=== PATIENT | female | born 1985 | race Caucasian/White ===

== ENCOUNTER 2016-06-24 19:35 | Emergency (ER) | payer OTHER ==
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
--- NOTE | 2016-06-24 22:12 | ED MAR SUMMARY ---
..... Medication Administration Record [facility] [address] [place], [place] [id number] Patient: MARTY YOUNG Visit ID: [id number] 31y, F Weight: 123.8 kg Height/Length: 64 in BMI: 46.9 ALLERGIES: No Known Drug Allergy
--- NOTE | 2016-06-24 22:12 | ED MED RECONCILIATION SUMMARY ---
Patient: MARTY YOUNG Medication Reconciliation Report [facility] VisitID: [id number] [address] [place] [address] 31y, F Registration Date/Time: 06/24/2016 Weight: 123.8 kg Height/Length: 64 in. BMI: 46.9 ALLERGIES: No Known Drug Allergy The patient's Home Medications are listed below: THE FOLLOWING MEDICATIONS NEED TO BE RECONCILED: HydrOXYzine HCl Oral 25 mg, 4x a day Lasix 20mg, daily Metoprolol Tartrate Oral 25 mg, daily ProAir HFA Inhalation 2 puffs, 4x a day PROzac Oral 60 mg, daily The source(s) of the original Home Medication information: patient The following Medications were given to the patient in the Emergency Department: None. The following Medications were prescribed to the patient: Zithromax 250 mg tablets: take 2 orally today, followed by 1 daily for the next 4 days. No refills. Substitution is permissible. -- Delmy Evans A.R.N.P.
--- NOTE | 2016-06-24 22:12 | ED MAR SUMMARY ---
..... Medication Administration Record [facility] [address] [place], [place] [id number] Patient: MARTY YOUNG Visit ID: [id number] 31y, F Weight: 123.8 kg Height/Length: 64 in BMI: 46.9 ALLERGIES: No Known Drug Allergy
--- NOTE | 2016-06-24 22:12 | ED MED RECONCILIATION SUMMARY ---
Patient: MARTY YOUNG Medication Reconciliation Report Located [facility] VisitID: [id number] [address] [place] [address] 31y, F Registration Date/Time: 06/24/2016 Weight: 123.8 kg Height/Length: 64 in. BMI: 46.9 ALLERGIES: No Known Drug Allergy The patient's Home Medications are listed below: THE FOLLOWING MEDICATIONS NEED TO BE RECONCILED: HydrOXYzine HCl Oral 25 mg, 4x a day Lasix 20mg, daily Metoprolol Tartrate Oral 25 mg, daily ProAir HFA Inhalation 2 puffs, 4x a day PROzac Oral 60 mg, daily The source(s) of the original Home Medication information: patient The following Medications were given to the patient in the Emergency Department: None. The following Medications were prescribed to the patient: Zithromax 250 mg tablets: take 2 orally today, followed by 1 daily for the next 4 days. No refills. Substitution is permissible. -- Delmy Evans A.R.N.P.
--- NOTE | 2016-06-24 22:12 | ED DISCHARGE INSTRUCTIONS ---
Patient: MARTY YOUNG General Instructions [facility] VisitID: [id number] [place] [address] 31y, F Registration Date/Time: 06/24/2016 INSTRUCTIONS Alternate Tylenol (Acetaminophen) and Motrin (Ibuprofen) for fever, temperature greater than 101 degrees orally. Take according to label instructions. Do not work for two days. Drink plenty of fluids for the next 24 hours until better. Do not smoke. Warnings: GENERAL WARNINGS: Return or contact your physician immediately if your condition worsens or changes unexpectedly, if not improving as expected, or if other problems arise. Specifically return if problem worsens. Prescription Medications: Zithromax 250 mg tablets: take 2 orally today, followed by 1 daily for the next 4 days. No refills. Substitution is permissible. Follow-up: Follow up with your doctor in about five days even if well. Call for an appointment. Summary of care provided to patient. Screening today revealed the patient's blood pressure to be in the hypertensive range. The patient should follow up with a primary care provider for blood pressure management. Understanding of the discharge instructions verbalized by patient. ADDITIONAL INFORMATION Bronchitis (Adult: Abx Tx) BRONCHITIS is an infection of the air passages (bronchial tubes). It often occurs during the common cold. Symptoms include cough with mucus (phlegm) and low-grade fever. Bronchitis usually lasts 7-14 days. Mild cases can be treated with simple home remedies. More severe infection is treated with an antibiotic. Home Care: If symptoms are severe, rest at home for the first 2-3 days. When you resume activity, don't let yourself get too tired. Do not smoke. Avoid being exposed to the smoke of others. You may use acetaminophen (Tylenol) or ibuprofen (Motrin, Advil) to control fever or pain, unless another medicine was prescribed for this. [NOTE: If you have chronic liver or kidney disease or ever had a stomach ulcer or GI bleeding, talk with your doctor before using these medicines.] Your appetite may be poor, so a light diet is fine. Avoid dehydration by drinking 6-8 glasses of fluids per day (water, soft, drinks, juices, tea, soup, etc.). Extra fluids will help loosen secretions in the lungs. Fdzp-zyk-bwmgshu cough medicines that containdextromethorphan(such as Robitussin DM) and decongestants (Actifed or Sudafed) may help relieve cough and congestion. [NOTE: Do not use decongestants if you have high blood pressure.] Finish all antibiotic medicine, even if you are feeling better after only a few days. Follow Up with your doctor or as directed if you dont start to feel better after three days. [NOTE: If you are age 65 or older, or if you have chronic asthma or COPD, we recommend a PNEUMOCOCCAL VACCINATION every five years and a yearly INFLUENZAVACCINATION (FLU-SHOT) every . Ask your doctor about this. If you had an X-ray, a radiologist will review it. You will be notified of any new findings that may affect your care.] Get Prompt Medical Attention if any of the following occur: Fever over 100.4F (38.0C) for more than three days Trouble breathing, wheezing or pain with breathing Coughing up blood or increased amounts of colored sputum Weakness, drowsiness, headache, facial pain, ear pain or a stiff neck Fever Control (Adult) A fever is a natural reaction of the body to an illness. In most cases, the temperature itself is not harmful. It actually helps the body fight infections. A fever does not need to be treated unless you feel very uncomfortable. Home Care If you feel warm, check your temperature. If you feel very uncomfortable and your temperature is at or higher than 100.4F (38C) oral, you may take acetaminophen (Tylenol) every 4 to 6 hours. If you cant take or keep down oral medicine, ask your pharmacist for Tylenol suppositories, which you can get without a prescription. If the fever does not respond to acetaminophen within 1 hour, take ibuprofen (Advil or Motrin). If this works, keep taking the ibuprofen every 6 to 8 hours. Note: If you have chronic liver or kidney disease or ever had a stomach ulcer or GI bleeding, talk with your doctor before using these medications. If either medication alone does not keep the fever down, you may alternate the two medicines every 3 to 4 hours, only if your healthcare provider has instructed you to do so. For example, take Motrin then wait 3 hours, take Tylenol then wait 3 hours, take Motrin, and so on. Follow your healthcare providers instructions exactly. Clothing: Keep clothing light because excess body heat is lost through the skin. The fever will go up if you wear extra layers or wrap in blankets. Fluids: Fever causes the body to lose water through evaporation. Drink plenty of fluids such as water, juice, clear sodas, jenae jordy, or lemonade. Do not use aspirin in anyone under 18 years of age who is ill with a fever. It can cause severe liver damage. Follow Up with your doctor or as advised by our staff if you do not get better after 48 hours. Get Prompt Medical Attention if any of the following occur: Fever does not get better after taking fever medication Fast or difficult breathing Earache, sinus pain, stiff or painful neck, headache, repeated diarrhea or vomiting You feel unusually irritable, drowsy, or confused A rash appears You feel weak or dizzy, or that you might faint Azithromycin Oral tablet What is this medicine? AZITHROMYCIN (az ith aaliyah EBTYE sin) is a macrolide antibiotic. It is used to treat or prevent certain kinds of bacterial infections. It will not work for colds, flu, or other viral infections. How should I use this medicine? Take this medicine by mouth with a full glass of water. Follow the directions on the prescription label. The tablets can be taken with food or on an empty stomach. If the medicine upsets your stomach, take it with food. Take your medicine at regular intervals. Do not take your medicine more often than directed. Take all of your medicine as directed even if you think your are better. Do not skip doses or stop your medicine early. Talk to your licensed therapist regarding the use of this medicine in children. Special care may be needed. What side effects may I notice from receiving this medicine? Side effects that you should report to your doctor or health medical care evaluation specialist as soon as possible: allergic reactions like skin rash, itching or hives, swelling of the face, lips, or tongue confusion, nightmares or hallucinations dark urine difficulty breathing hearing loss irregular heartbeat or chest pain pain or difficulty passing urine redness, blistering, peeling or loosening of the skin, including inside the mouth white patches or sores in the mouth yellowing of the eyes or skin Side effects that usually do not require medical attention (report to your doctor or health medical care evaluation specialist if they continue or are bothersome): diarrhea dizziness, drowsiness headache stomach upset or vomiting tooth discoloration vaginal irritation What may interact with this medicine? Do not take this medicine with any of the following medications: lincomycin This medicine may also interact with the following medications: amiodarone antacids cyclosporine digoxin magnesium nelfinavir phenytoin warfarin What if I miss a dose? If you miss a dose, take it as soon as you can. If it is almost time for your next dose, take only that dose. Do not take double or extra doses. Where should I keep my medicine? Keep out of the reach of children. Store at room temperature between 15 and 30 degrees C (59 and 86 degrees F). Throw away any unused medicine after the expiration date. What should I tell my health care provider before I take this medicine? They need to know if you have any of these conditions: kidney disease liver disease irregular heartbeat or heart disease an unusual or allergic reaction to azithromycin, erythromycin, other macrolide antibiotics, foods, dyes, or preservatives or trying to get breast-feeding What should I watch for while using this medicine? Tell your doctor or health medical care evaluation specialist if your symptoms do not improve. Do not treat diarrhea with over the counter products. Contact your doctor if you have diarrhea that lasts more than 2 days or if it is severe and watery. This medicine can make you more sensitive to the sun. Keep out of the sun. If you cannot avoid being in the sun, wear protective clothing and use sunscreen. Do not use sun lamps or tanning beds/booths. You have been given the following additional information: Bronchitis, Antiobiotic Treatment (Adult) Fever Control (Adult) Azithromycin Oral tablet Do not work for two days. (Electronically signed by Delmy Evans A.R.N.P. 06/24/2016 22:11)
== END 2016-06-24 20:50 | disposition home or self-care (01) ==
LOC: ED SRH 19:35
DX: J20.9 Acute bronchitis, unspecified (principal); I10 Essential (primary) hypertension; F17.210 Nicotine dependence, cigarettes, uncomplicated

== ENCOUNTER 2016-07-29 16:47 | Emergency (ER) | payer OTHER ==
--- NOTE | 2016-07-29 18:03 | ED ORDER SUMMARY ---
..... Patient: MARTY YOUNG OrderSheet [facility] VisitID: [id number] [address] [place] [address] 31y, F Registration Date/Time: 07/29/2016 ORDER SHEET Weight: 126.5 kg (stated) Allergies: No Known Drug Allergy GENERAL ORDERS: EKG - ER Stat (16:58 07/29/2016 Ranjan R.NKojo per protocol) (17:12 TBergley) Chest 1V Urgent (17:27 07/29/2016 Rula Vazquez) (Ack 17:29 TBergley) MEDICATION ORDERS: Morphine IM 4 mg (HIGH ALERT MEDICATION, NOW) (17:27 07/29/2016 Rula Vazquez) (17:33 Ranjan R.N.) IV FLUIDS: ORDER SHEET NOTES: [Electronically signed by Terence Espinoza Dr. (18:08 07/29/2016)] [Electronically signed by Dwight Max R.N. (19:29 07/29/2016)] [Electronically locked/signed by Dwight Max R.N. (19:29 07/29/2016)]
--- NOTE | 2016-07-29 18:03 | ED ORDER SUMMARY ---
..... Patient: MARTY YOUNG OrderSheet [facility] VisitID: [id number] [address] [place] [address] 31y, F Registration Date/Time: 07/29/2016 ORDER SHEET Weight: 126.5 kg (stated) Allergies: No Known Drug Allergy GENERAL ORDERS: EKG - ER Stat (16:58 07/29/2016 Ranjan R.NKojo per protocol) (17:12 TBergley) Chest 1V Urgent (17:27 07/29/2016 Rula Vazquez) (Ack 17:29 TBergley) MEDICATION ORDERS: Morphine IM 4 mg (HIGH ALERT MEDICATION, NOW) (17:27 07/29/2016 Rula Vazquez) (17:33 Ranjan R.N.) IV FLUIDS: ORDER SHEET NOTES: [Electronically signed by Terence Espinoza Dr. (18:08 07/29/2016)] [Electronically signed by Dwight Max R.N. (19:29 07/29/2016)] [Electronically locked/signed by Dwight Max R.N. (19:29 07/29/2016)]
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
--- NOTE | 2016-07-29 18:03 | ED NURSING NOTES ---
Clinical Report - Nurses [facility] [address] [place] [address] 07/29/2016 16:47 Patient: MARTY YOUNG TRIAGE Triage time 16:51 Jul 29 2016. Acuity: LEVEL 4. Chief Complaint: (chest pain). --16:55 Dwight Max R.N. 16:51 07/29/16. BP: 151/86. HR: 101. RR: 18. O2 saturation: 100%. Temp: 98.2 F. Pain level now 11/18. --16:55 Dwight Max R.N. Weight: 126.5 kg stated. Height/Length: 64 inches Per Patient. BMI: 47.9. --16:54 Dwight Max R.N. Medications HydrOXYzine HCl Oral 25 mg, 4x a day. Lasix 20mg, daily. --16:52 Dwight Max R.N. Metoprolol Tartrate Oral 25 mg, daily. ProAir HFA Inhalation 2 puffs, 4x a day as needed. PROzac Oral 60 mg, daily. --16:52 Dwight Max R.N. Allergies No Known Drug Allergy. --16:52 Dwight Max R.N. History Arrived by private vehicle. ( Pt reports that she was giving her mother a bed bath last night and began having pain in her chest and it hurts to breath.). This started last night. 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 SOCIAL HX: Heavy tobacco smoker. No alcohol use or drug use. --16:55 Dwight Max R.N. PROBLEMS: Lifestyle / Substance Problems. Nausea. URI. --16:53 Dwight Max R.N. ADDITIONAL SURGERIES: Cholecystectomy. Dilatation & Curettage. --16:53 Dwight Max R.N. Interventions ID band on patient. To treatment room. --16:55 Dwight Max R.N. PHYSICAL ASSESSMENT GENERAL / NEURO / PSYCH: Alert. Oriented X 4. Appears in no acute distress. HEENT: Pupils equal, round and reactive to light. No facial asymmetry noted. Mucous membranes are pink. RESPIRATORY: Respirations not labored. SKIN: Skin is warm and dry. --16:55 Dwight Max R.N. 17:01 07/29/16. 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 --17:01 Jody Snell R.N. NURSING PROGRESS NOTES Pulse oximeter placed on patient. Patient gowned. Call light placed in reach. Side rails up x 1. --16:55 Dwight Max R.N. ( Pt resting in bed in no obvious distress). --17:02 Dwight Max R.N. EKG time: (1713). EKG was ordered, performed by a tech and shown to the ED physician. --17:17 Ally Eduardo 17:33 07/29/2016 Morphine (Morphine Sulfate (PF)) IM 5 mg given. Given in the right deltoid. Allergies verified, confirmed 5 rights and sedative warning given. --17:33 Dwight Max R.N. 17:34 07/29/16. BP: 146/82. HR: 88. RR: 20. O2 saturation: 100%. --17:35 Dwight Max R.N. ( pt ambulated on discharge steady on her feet pt verbalized understanding of discharge instructions and follow up care). --18:28 Dwight Max R.N. 18:26 07/29/16. BP: 139/98. HR: 88. RR: 18. O2 saturation: 98%. Temp: 98.4 F. Pain level now 5/10. --18:28 Dwight Max R.N. DISPOSITION / DISCHARGE Reviewed medication(s) information. --18:29 Dwight Max R.N. 18:28 07/29/16. BP: 139/98. HR: 88. RR: 20. O2 saturation: 98%. Temp: 98.4 F. Pain level now 5/10. --18:29 Dwight Max R.N. Departure time: 1825. --18:29 Dwight Max R.N. No learning barriers present. Patient verbalized understanding. Written instructions provided in Yi. The patient was discharged by the physician. She was discharged home and accompanied by director of operations support. She left the Emergency Department ambulatory and via private vehicle. Housekeeper Manager driving. --18:29 Dwight Max R.N. Locked/Released at 07/29/2016 19:29 by Dwight Max R.N.
--- NOTE | 2016-07-29 18:03 | ED NURSING NOTES ---
Clinical Report - Nurses [facility] [address] [place] [address] 07/29/2016 16:47 Patient: MARTY YOUNG TRIAGE Triage time 16:51 Jul 29 2016. Acuity: LEVEL 4. Chief Complaint: (chest pain). --16:55 Dwight Max R.N. 16:51 07/29/16. BP: 151/86. HR: 101. RR: 18. O2 saturation: 100%. Temp: 98.2 F. Pain level now 11/18. --16:55 Dwight Max R.N. Weight: 126.5 kg stated. Height/Length: 64 inches Per Patient. BMI: 47.9. --16:54 Dwight Max R.N. Medications HydrOXYzine HCl Oral 25 mg, 4x a day. Lasix 20mg, daily. --16:52 Dwight Max R.N. Metoprolol Tartrate Oral 25 mg, daily. ProAir HFA Inhalation 2 puffs, 4x a day as needed. PROzac Oral 60 mg, daily. --16:52 Dwight Max R.N. Allergies No Known Drug Allergy. --16:52 Dwight Max R.N. History Arrived by private vehicle. ( Pt reports that she was giving her mother a bed bath last night and began having pain in her chest and it hurts to breath.). This started last night. 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 SOCIAL HX: Heavy tobacco smoker. No alcohol use or drug use. --16:55 Dwight Max R.N. PROBLEMS: Lifestyle / Substance Problems. Nausea. URI. --16:53 Dwight Max R.N. ADDITIONAL SURGERIES: Cholecystectomy. Dilatation & Curettage. --16:53 Dwight Max R.N. Interventions ID band on patient. To treatment room. --16:55 Dwight Max R.N. PHYSICAL ASSESSMENT GENERAL / NEURO / PSYCH: Alert. Oriented X 4. Appears in no acute distress. HEENT: Pupils equal, round and reactive to light. No facial asymmetry noted. Mucous membranes are pink. RESPIRATORY: Respirations not labored. SKIN: Skin is warm and dry. --16:55 Dwight Max R.N. 17:01 07/29/16. 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 --17:01 Jody Snell R.N. NURSING PROGRESS NOTES Pulse oximeter placed on patient. Patient gowned. Call light placed in reach. Side rails up x 1. --16:55 Dwight Max R.N. ( Pt resting in bed in no obvious distress). --17:02 Dwight Max R.N. EKG time: (1713). EKG was ordered, performed by a tech and shown to the ED physician. --17:17 Ally Eduardo 17:33 07/29/2016 Morphine (Morphine Sulfate (PF)) IM 5 mg given. Given in the right deltoid. Allergies verified, confirmed 5 rights and sedative warning given. --17:33 Dwight Max R.N. 17:34 07/29/16. BP: 146/82. HR: 88. RR: 20. O2 saturation: 100%. --17:35 Dwight Max R.N. ( pt ambulated on discharge steady on her feet pt verbalized understanding of discharge instructions and follow up care). --18:28 Dwight Max R.N. 18:26 07/29/16. BP: 139/98. HR: 88. RR: 18. O2 saturation: 98%. Temp: 98.4 F. Pain level now 5/10. --18:28 Dwight Max R.N. DISPOSITION / DISCHARGE Reviewed medication(s) information. --18:29 Dwight Max R.N. 18:28 07/29/16. BP: 139/98. HR: 88. RR: 20. O2 saturation: 98%. Temp: 98.4 F. Pain level now 5/10. --18:29 Dwight Max R.N. Departure time: 1825. --18:29 Dwight Max R.N. No learning barriers present. Patient verbalized understanding. Written instructions provided in Italian. The patient was discharged by the physician. She was discharged home and accompanied by community support worker. She left the Emergency Department ambulatory and via private vehicle. Commercial Account Executive driving. --18:29 Dwight Max R.N. Locked/Released at 07/29/2016 19:29 by Dwight Max R.N.
--- NOTE | 2016-07-29 18:48 | DIAGNOSTIC IMAGING REPORT ---
PROCEDURE: XR CHEST 1 VIEW INDICATION: CHEST PAIN, initial encounter TECHNIQUE: Portable AP view 05:36 p.m. COMPARISON: Chest x-ray 02/03/2015 FINDINGS: Lungs are clear. Heart and mediastinum are normal. Thorax is normal. No significant interval change. IMPRESSION: 1. Negative chest.
--- NOTE | 2016-07-29 19:29 | ED MAR SUMMARY ---
..... Medication Administration Record [facility] [address] [place] [address] Patient: MARTY YOUNG Visit ID: [id number] 31y, F Weight: 126.5 kg Height/Length: 64 in BMI: 47.9 ALLERGIES: No Known Drug Allergy Given 17:33 07/29/2016 Dwight Max R.N. Medication Administered: MORPHINE [IM] (MORPHINE SULFATE (PF)), Dose: 5 mg IM. Medication Ordered: Morphine IM 4 mg (HIGH ALERT MEDICATION, NOW).
--- NOTE | 2016-07-29 19:29 | ED MAR SUMMARY ---
..... Medication Administration Record [facility] [address] [place] [address] Patient: MARTY YOUNG Visit ID: [id number] 31y, F Weight: 126.5 kg Height/Length: 64 in BMI: 47.9 ALLERGIES: No Known Drug Allergy Given 17:33 07/29/2016 Dwight Max R.N. Medication Administered: MORPHINE [IM] (MORPHINE SULFATE (PF)), Dose: 5 mg IM. Medication Ordered: Morphine IM 4 mg (HIGH ALERT MEDICATION, NOW).
--- NOTE | 2016-07-29 19:29 | ED DISCHARGE INSTRUCTIONS ---
Patient: MARTY YOUNG General Instructions Merged With [facility] VisitID: [id number] [place] [address] 31y, F Registration Date/Time: 07/29/2016 Costochondritis .12 lead EKG performed. INSTRUCTIONS No lifting greater than 10 lbs (No pushing or pulling). Modified duty as described above until released. Prescription Medications: Ibuprofen 800 mg tablets: take 1 tablet orally every 8 hours as needed for pain or stiffness. Dispense thirty (30). No refill. Hydrocodone/APAP 5mg / 325mg: take 1 orally every 6 hours as needed for pain. Dispense fifteen (15). No refill. Follow-up: Follow up with your doctor in about two days. Call for an appointment. Blood pressure screening was not performed during this visit because the patient has an active diagnosis of hypertension. ADDITIONAL INFORMATION Chest Wall Pain: Costochondritis The chest pain that you have had today is caused by Costochondritis. This condition is due to an inflammation of the cartilage joining the ribs to the breastbone. It is not caused by heart or lung problems. Although the exact cause for costochondritis is not known, it often occurs during times of emotional stress. It can be painful, but it is not dangerous. It usually disappears within one to two weeks, but may recur. Rarely, a more serious condition may cause symptoms similar to costochondritis; therefore, watch for the warning signs listed below. Home Care: If you feel that emotional stress is a cause of your condition, try to identify sources of that stress. It may not be obvious! Learn ways to deal with the stress in your life such as regular exercise, muscle relaxation, meditation, or simply taking time out for yourself. For more information about this, consult your doctor or go to a local bookstore and review books and tapes available on the subject of stress reduction. You may use acetaminophen (Tylenol) or ibuprofen (Motrin, Advil) to control pain, unless another pain medicine was prescribed. [ NOTE: If you have liver disease or ever had a stomach ulcer, talk with your doctor before using these medicines.] The use of heat (hot wet compress or heating pad) with or without local analgesic creams (Deep Heat Rub, Sujit Mohr) will be helpful to reduce pain. Follow Up with your doctor as directed or sooner if you do not start to improve within the next two days. Get Prompt Medical Attention if any of the following occur: A change in the type of pain: if it feels different, becomes more severe, lasts longer, or spreads into your shoulder, arm, neck, jaw or back Shortness of breath or increased pain with breathing Weakness, dizziness, or fainting Cough with dark colored sputum (phlegm) or blood Abdominal pain Dark red or black stools Fever of 100.4F (38C) or higher, or as directed by your healthcare provider Ibuprofen Oral tablet What is this medicine? IBUPROFEN (eye BYOO proe fen) is a non-steroidal anti-inflammatory drug (NSAID). It is used for dental pain, fever, headaches or migraines, osteoarthritis, rheumatoid arthritis, or painful monthly periods. It can also relieve minor aches and pains caused by a cold, flu, or sore throat. How should I use this medicine? Take this medicine by mouth with a glass of water. Follow the directions on the prescription label. Take this medicine with food if your stomach gets upset. Try to not lie down for at least 10 minutes after you take the medicine. Take your medicine at regular intervals. Do not take your medicine more often than directed. A special MedGuide will be given to you by the pharmacist with each prescription and refill. Be sure to read this information carefully each time. Talk to your courier regarding the use of this medicine in children. Special care may be needed. What side effects may I notice from receiving this medicine? Side effects that you should report to your doctor or health child care development specialist as soon as possible: allergic reactions like skin rash, itching or hives, swelling of the face, lips, or tongue black or bloody stools, blood in the urine or in vomit breathing problems changes in vision chest pain general ill feeling or flu-like symptoms nausea or vomiting redness, blistering, peeling or loosening of the skin, including inside the mouth slurred speech or weakness on one side of the body stomach pain unexplained weight gain or swelling unusually weak or tired yellowing of eyes or skin Side effects that usually do not require medical attention (report to your doctor or health child care development specialist if they continue or are bothersome): constipation or diarrhea dizziness gas or heartburn stomach upset What may interact with this medicine? Do not take this medicine with any of the following medications: cidofovir ketorolac methotrexate pemetrexed This medicine may also interact with the following medications: alcohol aspirin diuretics lithium other drugs for inflammation like prednisone warfarin What if I miss a dose? If you miss a dose, take it as soon as you can. If it is almost time for your next dose, take only that dose. Do not take double or extra doses. Where should I keep my medicine? Keep out of the reach of children. Store at room temperature between 15 and 30 degrees C (59 and 86 degrees F). Keep container tightly closed. Throw away any unused medicine after the expiration date. What should I tell my health care provider before I take this medicine? They need to know if you have any of these conditions: asthma cigarette smoker drink more than 3 alcohol containing drinks a day heart disease or circulation problems such as heart failure or leg edema (fluid retention) high blood pressure kidney disease liver disease stomach bleeding or ulcers an unusual or allergic reaction to ibuprofen, aspirin, other NSAIDS, other medicines, foods, dyes, or preservatives or trying to get breast-feeding What should I watch for while using this medicine? Tell your doctor or healthcare professional if your symptoms do not start to get better or if they get worse. This medicine does not prevent heart attack or stroke. In fact, this medicine may increase the chance of a heart attack or stroke. The chance may increase with longer use of this medicine and in people who have heart disease. If you take aspirin to prevent heart attack or stroke, talk with your doctor or health child care development specialist. Do not take other medicines that contain aspirin, ibuprofen, or naproxen with this medicine. Side effects such as stomach upset, nausea, or ulcers may be more likely to occur. Many medicines available without a prescription should not be taken with this medicine. This medicine can cause ulcers and bleeding in the stomach and intestines at any time during treatment. Ulcers and bleeding can happen without warning symptoms and can cause . To reduce your risk, do not smoke cigarettes or drink alcohol while you are taking this medicine. You may get drowsy or dizzy. Do not drive, use machinery, or do anything that needs mental alertness until you know how this medicine affects you. Do not stand or sit up quickly, especially if you are an older patient. This reduces the risk of dizzy or fainting spells. This medicine can cause you to bleed more easily. Try to avoid damage to your teeth and gums when you brush or floss your teeth. Hydrocodone Bitartrate, Acetaminophen Oral tablet What is this medicine? ACETAMINOPHEN; HYDROCODONE (a set a EVERARDO laurie fen; estrellita droe KOE done) is a pain reliever. It is used to treat mild to moderate pain. How should I use this medicine? Take this medicine by mouth. Swallow it with a full glass of water. Follow the directions on the prescription label. If the medicine upsets your stomach, take the medicine with food or milk. Do not take more than you are told to take. Talk to your courier regarding the use of this medicine in children. This medicine is not approved for use in children. What side effects may I notice from receiving this medicine? Side effects that you should report to your doctor or health child care development specialist as soon as possible: allergic reactions like skin rash, itching or hives, swelling of the face, lips, or tongue breathing problems confusion feeling faint or lightheaded, falls stomach pain yellowing of the eyes or skin Side effects that usually do not require medical attention (report to your doctor or health child care development specialist if they continue or are bothersome): nausea, vomiting stomach upset What may interact with this medicine? alcohol antihistamines isoniazid medicines for depression, anxiety, or psychotic disturbances medicines for sleep muscle relaxants naltrexone narcotic medicines (opiates) for pain phenobarbital ritonavir tramadol What if I miss a dose? If you miss a dose, take it as soon as you can. If it is almost time for your next dose, take only that dose. Do not take double or extra doses. Where should I keep my medicine? Keep out of the reach of children. This medicine can be abused. Keep your medicine in a safe place to protect it from theft. Do not share this medicine with anyone. Selling or giving away this medicine is dangerous and against the law. Store at room temperature between 15 and 30 degrees C (59 and 86 degrees F). Protect from light. Keep container tightly closed. Throw away any unused medicine after the expiration date. Discard unused medicine and used packaging carefully. Pets and children can be harmed if they find used or lost packages. What should I tell my health care provider before I take this medicine? They need to know if you have any of these conditions: brain tumor Crohn's disease, inflammatory bowel disease, or ulcerative colitis drink more than 3 alcohol-containing drinks per day drug abuse or addiction head injury heart or circulation problems kidney disease or problems going to the bathroom liver disease lung disease, asthma, or breathing problems an unusual or allergic reaction to acetaminophen, hydrocodone, other opioid analgesics, other medicines, foods, dyes, or preservatives or trying to get breast-feeding What should I watch for while using this medicine? Tell your doctor or health child care development specialist if your pain does not go away, if it gets worse, or if you have new or a different type of pain. You may develop tolerance to the medicine. Tolerance means that you will need a higher dose of the medicine for pain relief. Tolerance is normal and is expected if you take the medicine for a long time. Do not suddenly stop taking your medicine because you may develop a severe reaction. Your body becomes used to the medicine. This does NOT mean you are addicted. Addiction is a behavior related to getting and using a drug for a non-medical reason. If you have pain, you have a medical reason to take pain medicine. Your doctor will tell you how much medicine to take. If your doctor wants you to stop the medicine, the dose will be slowly lowered over time to avoid any side effects. You may get drowsy or dizzy when you first start taking the medicine or change doses. Do not drive, use machinery, or do anything that may be dangerous until you know how the medicine affects you. Stand or sit up slowly. There are different types of narcotic medicines (opiates) for pain. If you take more than one type at the same time, you may have more side effects. Give your health care provider a list of all medicines you use. Your doctor will tell you how much medicine to take. Do not take more medicine than directed. Call emergency for help if you have problems breathing. The medicine will cause constipation. Try to have a bowel movement at least every 2 to 3 days. If you do not have a bowel movement for 3 days, call your doctor or health child care development specialist. Too much acetaminophen can be very dangerous. Do not take Tylenol (acetaminophen) or medicines that contain acetaminophen with this medicine. Many non-prescription medicines contain acetaminophen. Always read the labels carefully. You have been given the following additional information: Chest Wall Pain, Costochondritis Ibuprofen Oral tablet Hydrocodone Bitartrate, Acetaminophen Oral tablet No lifting greater than 10 lbs (No pushing or pulling). Modified duty as described above until released. (Electronically signed by Terence Espinoza Dr. 07/29/2016 18:08)
--- NOTE | 2016-07-29 19:30 | ED MED RECONCILIATION SUMMARY ---
Patient: MARTY YOUNG Medication Reconciliation Report [facility] VisitID: [id number] [address] [place] [address] 31y, F Registration Date/Time: 07/29/2016 Weight: 126.5 kg Height/Length: 64 in. BMI: 47.9 ALLERGIES: No Known Drug Allergy The patient's Home Medications are listed below: THE FOLLOWING MEDICATIONS NEED TO BE RECONCILED: HydrOXYzine HCl Oral 25 mg, 4x a day Lasix 20mg, daily Metoprolol Tartrate Oral 25 mg, daily ProAir HFA Inhalation 2 puffs, 4x a day PROzac Oral 60 mg, daily The source(s) of the original Home Medication information: Not obtained. The following Medications were given to the patient in the Emergency Department: Morphine [IM] IM 5 mg, administered: 07/29/2016 5:33:00 PM The following Medications were prescribed to the patient: Ibuprofen 800 mg tablets: take 1 tablet orally every 8 hours as needed for pain or stiffness. Dispense thirty (30). No refill. -- Terence Espinoza Dr. Hydrocodone/APAP 5mg / 325mg: take 1 orally every 6 hours as needed for pain. Dispense fifteen (15). No refill. -- Terence Espinoza Dr.
--- NOTE | 2016-07-29 19:30 | ED MED RECONCILIATION SUMMARY ---
Patient: MARTY YOUNG Medication Reconciliation Report [facility] VisitID: [id number] [address] [place] [address] 31y, F Registration Date/Time: 07/29/2016 Weight: 126.5 kg Height/Length: 64 in. BMI: 47.9 ALLERGIES: No Known Drug Allergy The patient's Home Medications are listed below: THE FOLLOWING MEDICATIONS NEED TO BE RECONCILED: HydrOXYzine HCl Oral 25 mg, 4x a day Lasix 20mg, daily Metoprolol Tartrate Oral 25 mg, daily ProAir HFA Inhalation 2 puffs, 4x a day PROzac Oral 60 mg, daily The source(s) of the original Home Medication information: Not obtained. The following Medications were given to the patient in the Emergency Department: Morphine [IM] IM 5 mg, administered: 07/29/2016 5:33:00 PM The following Medications were prescribed to the patient: Ibuprofen 800 mg tablets: take 1 tablet orally every 8 hours as needed for pain or stiffness. Dispense thirty (30). No refill. -- Terence Espinoza Dr. Hydrocodone/APAP 5mg / 325mg: take 1 orally every 6 hours as needed for pain. Dispense fifteen (15). No refill. -- Terence Espinoza Dr.
== END 2016-07-29 18:26 | disposition home or self-care (01) ==
LOC: ED SRH 16:47
DX: M94.0 Chondrocostal junction syndrome [Tietze] (principal); X50.1XXA Overexertion from prolonged static or awkward postures, initial encounter; Y99.8 Other external cause status; Y92.009 Unspecified place in unspecified non-institutional (private) residence as the place of occurrence of the external cause; I10 Essential (primary) hypertension; F17.200 Nicotine dependence, unspecified, uncomplicated; Z90.49 Acquired absence of other specified parts of digestive tract; Z79.899 Other long term (current) drug therapy

== ENCOUNTER 2016-08-20 12:44 | Emergency (ER) | payer OTHER ==
--- NOTE | 2016-08-20 13:05 | ED NURSING NOTES ---
Clinical Report - Nurses [facility] [address] [place] [address] 08/20/2016 12:45 Patient: MARTY YOUNG TRIAGE Triage time 12:51. Acuity: LEVEL 4. Chief Complaint: RIGHT LOWER TOOTHACHE. Alert. No acute distress. ( Pt. states she had a tooth pulled on . She is here today because she is having severe pain and the vicoden is not helping.). SEPSIS SCREEN: Sepsis Screen. Negative (no infection suspected/documented). --12:55 Kia Beckett R.N. 12:50 08/20/16. BP: 179/100. HR: 92. RR: 18. O2 saturation: 99%. Temp: 99.0 F. Pain level now 9/10. --12:55 Kia Beckett R.N. Weight: 124.2 kg stated. Height/Length: 64 inches Per Patient. BMI: 47. --12:53 Kia Beckett R.N. Medications HydrOXYzine HCl Oral 25 mg, 4x a day. Metoprolol Tartrate Oral 25 mg, daily. ProAir HFA Inhalation 2 puffs, 4x a day as needed. PROzac Oral 60 mg, daily. --12:53 Kia Beckett R.N. Lasix Oral 20 mg, as needed. --12:54 Kia Beckett R.N. Vicodin Oral 5 mg, as needed. --12:54 Kia Beckett R.N. Amoxicillin Oral (Capsule 500 mg), x3 daily. --12:54 Kia Beckett R.N. Tylenol with Codeine #3 Oral, as needed. --12:54 Kia Beckett R.N. Allergies No Known Drug Allergy. --12:53 Kia Beckett R.N. History Arrived by private vehicle. Historian: patient. Accompanied by family. Primary physician (Avelina Deleon). Onset. (3 days ago). 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 PAST MEDICAL HX: Immunizations: up-to-date. Last normal menstrual period- 1 week ago. SOCIAL HX: Light tobacco smoker (cigarette)- less than 1/2 a pack per day. Occasional alcohol use. No drug use. ABUSE ASSESSMENT: Abuse assessment: The patient was asked "Do you feel safe in your home?" and "Has anyone hurt you or threatened to hurt you?". No report of abuse. SELF HARM ASSESSMENT: A self harm assessment was performed. The patient answered "no" to the question "Do you have thoughts of harming or killing yourself?" and "Have you recently had thoughts about harming or killing others?". NUTRITIONAL RISK ASSESSMENT: The nutritional risk assessment revealed no deficiencies. FUNCTIONAL ASSESSMENT: Functional assessment: no impairments noted. LEARNING NEEDS ASSESSMENT: The learning needs assessment revealed no barriers. --12:55 Kia Beckett R.N. PROBLEMS: Costochondritis. Corneal Abrasion. Lifestyle / Substance Problems. Bronchitis. Anxiety Reaction. Dental Pain. Nausea. URI. Pelvic Pain. Ovarian Cyst. Hypertension. Abdominal Pain. Depression. --12:54 Kia Beckett R.N. ADDITIONAL SURGERIES: Cholecystectomy. Dilatation & Curettage. --12:54 Kia Beckett R.N. Interventions ID band on patient. Ambulatory. --12:55 Kia Beckett R.N. PHYSICAL ASSESSMENT Ambulatory to room. GENERAL / NEURO / PSYCH: Alert. Appears in no acute distress. RESPIRATORY: Respirations not labored. SKIN: Skin is warm and dry. --12:56 Kia Beckett R.N. NURSING PROGRESS NOTES Head of bed elevated. Two patient identifiers checked. Call light placed in reach. Side rails up x 2. Bed placed in lowest position. Brakes of bed on. Patient ready for evaluation- chart flagged. --12:56 Kia Beckett R.N. 13:15 08/20/2016 Percocet (Oxycodone-Acetaminophen) PO 5/325 mg Tablets 1 tab given. Allergies verified, confirmed 5 rights and sedative warning given to the patient. --13:22 Marcello Buenrostro R.N. 13:17 08/20/2016 Clindamycin IM 600 mg given. Given in the right anterior lateral thigh and left anterior lateral thigh (split dose). Allergies verified and confirmed 5 rights. --13:22 Marcello Buenrostro R.N. DISPOSITION / DISCHARGE 13:27 08/20/16. Departure time: 1326. Condition at departure: improved and stable. Discharge instructions provided and reviewed with the patient. Reviewed medication(s) side effects, precautions, dosing and course information. Prescription(s) given to the patient. Patient verbalized understanding. Written instructions provided in Slovak. ( f/u with dentist). The patient was discharged by the physician assistant winemaker. She was discharged home and accompanied by family. She left the Emergency Department ambulatory and via private vehicle. Family member driving. --13:27 Marcello Buenrostro R.N. Locked/Released at 08/20/2016 19:44 by Tammy Muhammad R.N.
--- NOTE | 2016-08-20 13:05 | ED NURSING NOTES ---
Clinical Report - Nurses [facility] [address] [place] [address] 08/20/2016 12:45 Patient: MARTY YOUNG TRIAGE Triage time 12:51. Acuity: LEVEL 4. Chief Complaint: RIGHT LOWER TOOTHACHE. Alert. No acute distress. ( Pt. states she had a tooth pulled on . She is here today because she is having severe pain and the vicoden is not helping.). SEPSIS SCREEN: Sepsis Screen. Negative (no infection suspected/documented). --12:55 Kia Beckett R.N. 12:50 08/20/16. BP: 179/100. HR: 92. RR: 18. O2 saturation: 99%. Temp: 99.0 F. Pain level now 9/10. --12:55 Kia Beckett R.N. Weight: 124.2 kg stated. Height/Length: 64 inches Per Patient. BMI: 47. --12:53 Kia Beckett R.N. Medications HydrOXYzine HCl Oral 25 mg, 4x a day. Metoprolol Tartrate Oral 25 mg, daily. ProAir HFA Inhalation 2 puffs, 4x a day as needed. PROzac Oral 60 mg, daily. --12:53 Kia Beckett R.N. Lasix Oral 20 mg, as needed. --12:54 Kia Beckett R.N. Vicodin Oral 5 mg, as needed. --12:54 Kia Beckett R.N. Amoxicillin Oral (Capsule 500 mg), x3 daily. --12:54 Kia Beckett R.N. Tylenol with Codeine #3 Oral, as needed. --12:54 Kia Beckett R.N. Allergies No Known Drug Allergy. --12:53 Kia Beckett R.N. History Arrived by private vehicle. Historian: patient. Accompanied by family. Primary physician (Avelina Deleon). Onset. (3 days ago). 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 PAST MEDICAL HX: Immunizations: up-to-date. Last normal menstrual period- 1 week ago. SOCIAL HX: Light tobacco smoker (cigarette)- less than 1/2 a pack per day. Occasional alcohol use. No drug use. ABUSE ASSESSMENT: Abuse assessment: The patient was asked "Do you feel safe in your home?" and "Has anyone hurt you or threatened to hurt you?". No report of abuse. SELF HARM ASSESSMENT: A self harm assessment was performed. The patient answered "no" to the question "Do you have thoughts of harming or killing yourself?" and "Have you recently had thoughts about harming or killing others?". NUTRITIONAL RISK ASSESSMENT: The nutritional risk assessment revealed no deficiencies. FUNCTIONAL ASSESSMENT: Functional assessment: no impairments noted. LEARNING NEEDS ASSESSMENT: The learning needs assessment revealed no barriers. --12:55 Kia Beckett R.N. PROBLEMS: Costochondritis. Corneal Abrasion. Lifestyle / Substance Problems. Bronchitis. Anxiety Reaction. Dental Pain. Nausea. URI. Pelvic Pain. Ovarian Cyst. Hypertension. Abdominal Pain. Depression. --12:54 Kia Beckett R.N. ADDITIONAL SURGERIES: Cholecystectomy. Dilatation & Curettage. --12:54 Kia Beckett R.N. Interventions ID band on patient. Ambulatory. --12:55 Kia Beckett R.N. PHYSICAL ASSESSMENT Ambulatory to room. GENERAL / NEURO / PSYCH: Alert. Appears in no acute distress. RESPIRATORY: Respirations not labored. SKIN: Skin is warm and dry. --12:56 Kia Beckett R.N. NURSING PROGRESS NOTES Head of bed elevated. Two patient identifiers checked. Call light placed in reach. Side rails up x 2. Bed placed in lowest position. Brakes of bed on. Patient ready for evaluation- chart flagged. --12:56 Kia Beckett R.N. 13:15 08/20/2016 Percocet (Oxycodone-Acetaminophen) PO 5/325 mg Tablets 1 tab given. Allergies verified, confirmed 5 rights and sedative warning given to the patient. --13:22 Marcello Buenrostro R.N. 13:17 08/20/2016 Clindamycin IM 600 mg given. Given in the right anterior lateral thigh and left anterior lateral thigh (split dose). Allergies verified and confirmed 5 rights. --13:22 Marcello Buenrostro R.N. DISPOSITION / DISCHARGE 13:27 08/20/16. Departure time: 1326. Condition at departure: improved and stable. Discharge instructions provided and reviewed with the patient. Reviewed medication(s) side effects, precautions, dosing and course information. Prescription(s) given to the patient. Patient verbalized understanding. Written instructions provided in [place]. ( f/u with dentist). The patient was discharged by the physician assistant operations manager. She was discharged home and accompanied by family. She left the Emergency Department ambulatory and via private vehicle. Family member driving. --13:27 Marcello Buenrostro R.N. Locked/Released at 08/20/2016 19:44 by Tammy Muhammad R.N.
--- NOTE | 2016-08-20 13:05 | ED CLINICAL REPORT ---
Clinical Report - Physicians/Mid Levels [facility] [address] [place] [address] 08/20/2016 12:45 Patient: MARTY YOUNG Time Seen: 1300 Aug 20 2016. Arrived- By private vehicle. Historian- patient. HISTORY OF PRESENT ILLNESS Chief Complaint: DENTAL PAIN. This started 3 days and is still present. Pain described as moderate. No nasal discharge or congestion. She has had toothache. (dental extraction now with pain on vicodin, with abx amox, pain persist, taking advil in addition. No fevers. No diff swallowing. Has tried heat. Reports no facial swelling. No cough.). REVIEW OF SYSTEMS No cough, difficulty breathing, diarrhea or joint pain. All systems otherwise negative, except as recorded above. PAST HISTORY Problems: Costochondritis. Corneal Abrasion. Lifestyle / Substance Problems. Bronchitis. Anxiety Reaction. Nausea. Tetanus Status. URI. Immunizations. Pelvic Pain. Ovarian Cyst. Hypertension. Abdominal Pain. LNMP - Last Normal Menstrual Period. Depression. Additional Surgeries: Cholecystectomy. Dilatation & Curettage. Medications: Tylenol with Codeine #3 Oral, as needed. Amoxicillin Oral (Capsule 500 mg), x3 daily. Vicodin Oral 5 mg, as needed. Lasix Oral 20 mg, as needed. HydrOXYzine HCl Oral 25 mg, 4x a day. Metoprolol Tartrate Oral 25 mg, daily. ProAir HFA Inhalation 2 puffs, 4x a day as needed. PROzac Oral 60 mg, daily. Allergies: No Known Drug Allergy. SOCIAL HISTORY Alcohol use. No drug use. ADDITIONAL NOTES The nursing notes have been reviewed. PHYSICAL EXAM Vital Signs: 08/20/2016 12:50 BP: 179/100. HR: 92. RR: 18. O2 saturation: 99%. Temp: 99.0 F. Appearance: Alert. Head: Normal external inspection. Eyes: Conjunctivae and eyelids normal. ENT: Dental tenderness. Lips normal. Uvula midline. No tonsillar exudate or trismus. (extracted tooth with surrounding erythema, tendernss on r. side). Neck: Trachea midline. No adenopathy. Thyroid normal. CVS: Normal heart rate and rhythm. Respiratory: No respiratory distress. Breath sounds normal. No stridor or decreased air movement. Skin: No rash. PROGRESS AND PROCEDURES Dental Nerve Block: Time: 13:21 Aug 20 2016. Time-out completed immediately before the procedure. Inferior Alveolar Block. Procedure performed on the right side. Landmarks were identified. Topical anesthetic applied. Total volume of 2 mL 0.25% Marcaine infiltrated using a 30-gauge needle. No complications encountered. Good anesthesia achieved. Course of Care: no red flags, will rx for small percocet qt, given pain and visible new signs of infection in setting of already abx use, im clinda started, to continue at home clinda, and to f/u outpatient. Stable. Uvula midline. No trismus. No facial swelling/ rash. Patient is stable. Symptoms better. Patient/family counseled. Disposition: Discharged. Condition: good. CLINICAL IMPRESSION Moderate dental pain. INSTRUCTIONS Drink plenty of fluids. Prescription Medications: Cleocin 300 mg: take 1 capsule orally every 8 hours for 10 days. No refill. Substitution is permissible. Percocet 5 mg/325 mg: take 1 tablet orally every 6 hours as needed for pain. No refill. Substitution is permissible. (#7) Follow-up: Follow up with your doctor. Understanding of the discharge instructions verbalized by patient. (Electronically signed by Oumou Lopez P.A.-C 08/20/2016 13:30)
--- NOTE | 2016-08-20 13:05 | ED ORDER SUMMARY ---
..... Patient: MARTY YOUNG OrderSheet [facility] VisitID: [id number] [place] [address] 31y, F Registration Date/Time: 08/20/2016 ORDER SHEET Weight: 124.2 kg (stated) Allergies: No Known Drug Allergy GENERAL ORDERS: MEDICATION ORDERS: Clindamycin IM 600 mg (NOW) (13:02 08/20/2016 Yingleyury P.A.-C) (13:22 iWlliamams R.N.) Percocet PO 5/325 mg (HIGH ALERT MEDICATION, NOW) (13:02 08/20/2016 Yingleyury P.A.-C) (13:22 Williamams R.N.) IV FLUIDS: ORDER SHEET NOTES: [Electronically signed by Oumou LopezASun (13:30 08/20/2016)] [Electronically signed by Tammy Muhammad R.N. (19:44 08/20/2016)] [Electronically locked/signed by Tammy Muhammad R.N. (19:44 08/20/2016)]
--- NOTE | 2016-08-20 13:05 | ED ORDER SUMMARY ---
..... Patient: MARTY YOUNG OrderSheet [facility] VisitID: [id number] [place] [address] 31y, F Registration Date/Time: 08/20/2016 ORDER SHEET Weight: 124.2 kg (stated) Allergies: No Known Drug Allergy GENERAL ORDERS: MEDICATION ORDERS: Clindamycin IM 600 mg (NOW) (13:02 08/20/2016 Yingleyury P.A.-C) (13:22 Williamams R.N.) Percocet PO 5/325 mg (HIGH ALERT MEDICATION, NOW) (13:02 08/20/2016 Yingleyury P.A.-C) (13:22 Williamams R.N.) IV FLUIDS: ORDER SHEET NOTES: [Electronically signed by Oumou LopezASun (13:30 08/20/2016)] [Electronically signed by Tammy Muhammad R.N. (19:44 08/20/2016)] [Electronically locked/signed by Tammy Muhammad R.N. (19:44 08/20/2016)]
--- NOTE | 2016-08-20 19:45 | ED DISCHARGE INSTRUCTIONS ---
Patient: MARTY YOUGN General Instructions [facility] VisitID: [id number] [place] [address] 31y, F Registration Date/Time: 08/20/2016 Moderate dental pain. INSTRUCTIONS Drink plenty of fluids. Prescription Medications: Cleocin 300 mg: take 1 capsule orally every 8 hours for 10 days. No refill. Substitution is permissible. Percocet 5 mg/325 mg: take 1 tablet orally every 6 hours as needed for pain. No refill. Substitution is permissible. (#7) Follow-up: Follow up with your doctor. Understanding of the discharge instructions verbalized by patient. ADDITIONAL INFORMATION Dental Pain A crack or cavity in the tooth, which exposes the sensitive inner area of the tooth can cause tooth pain. An infection in the gum or the root of the tooth can cause pain and swelling. The pain is often made worse by drinking hot or cold fluids, or biting on hard foods. Pain may spread from the tooth to the ear or jaw on the same side. Home Care: Avoid hot and cold foods and liquids since your tooth may be sensitive to temperature changes. If your tooth is chipped or cracked, or if there is a large open cavity, apply OIL OF CLOVES (available [id number]-[id number] in drug stores) directly to the tooth to reduce pain. Some pharmacies carry an [id number] "toothache kit." This contains a paste, which can be applied over the exposed tooth to decrease sensitivity. A cold pack on your jaw over the sore area may help reduce pain. You may use acetaminophen (Tylenol) or ibuprofen (Motrin, Advil) to control pain, unless another medicine was prescribed. [ NOTE: If you have chronic liver or kidney disease or ever had a stomach ulcer or GI bleeding, talk with your doctor before using these medicines.] If you have signs of an infection, an antibiotic will be given. Take it as directed. Follow-Up as directed with a dentist. Your pain may go away with the treatment given. However, only a dentist can fully evaluate and treat the cause and prevent the pain from coming back again. TOOTHACHE IS A SIGN OF DISEASE IN YOUR TOOTH AND SHOULD BE EXAMINED AND TREATED BY A DENTIST. Get Prompt Medical Attention if any of the following occur: Your face becomes swollen or red Pain worsens or spreads to the neck Fever over 100.4 F (38.0 C) Unusual drowsiness; headache or stiff neck; weakness or fainting Pus drains from the tooth Difficulty swallowing or breathing Clindamycin Hydrochloride Oral capsule What is this medicine? CLINDAMYCIN (MARLEN Brown) is a lincosamide antibiotic. It is used to treat certain kinds of bacterial infections. It will not work for colds, flu, or other viral infections. How should I use this medicine? Take this medicine by mouth with a full glass of water. Follow the directions on the prescription label. You can take this medicine with food or on an empty stomach. If the medicine upsets your stomach, take it with food. Take your medicine at regular intervals. Do not take your medicine more often than directed. Take all of your medicine as directed even if you think your are better. Do not skip doses or stop your medicine early. Talk to your home visitor regarding the use of this medicine in children. Special care may be needed. What side effects may I notice from receiving this medicine? Side effects that you should report to your doctor or health progressive care unit registered nurse as soon as possible: allergic reactions like skin rash, itching or hives, swelling of the face, lips, or tongue dark urine pain on swallowing redness, blistering, peeling or loosening of the skin, including inside the mouth unusual bleeding or bruising unusually weak or tired yellowing of eyes or skin Side effects that usually do not require medical attention (report to your doctor or health progressive care unit registered nurse if they continue or are bothersome): diarrhea itching in the rectal or genital area joint pain nausea, vomiting stomach pain What may interact with this medicine? chloramphenicol erythromycin kaolin products What if I miss a dose? If you miss a dose, take it as soon as you can. If it is almost time for your next dose, take only that dose. Do not take double or extra doses. Where should I keep my medicine? Keep out of the reach of children. Store at room temperature between 20 and 25 degrees C (68 and 77 degrees F). Throw away any unused medicine after the expiration date. What should I tell my health care provider before I take this medicine? They need to know if you have any of these conditions: kidney disease liver disease stomach problems like colitis an unusual or allergic reaction to clindamycin, lincomycin, or other medicines, foods, dyes like tartrazine or preservatives or trying to get breast-feeding What should I watch for while using this medicine? Tell your doctor or healthcare professional if your symptoms do not start to get better or if they get worse. Do not treat diarrhea with over the counter products. Contact your doctor if you have diarrhea that lasts more than 2 days or if it is severe and watery. Oxycodone Hydrochloride, Acetaminophen Oral tablet What is this medicine? ACETAMINOPHEN; OXYCODONE (a set a EVERARDO laurie fen; ox i KOE done) is a pain reliever. It is used to treat mild to moderate pain. How should I use this medicine? Take this medicine by mouth with a full glass of water. Follow the directions on the prescription label. Take your medicine at regular intervals. Do not take your medicine more often than directed. Talk to your home visitor regarding the use of this medicine in children. Special care may be needed. Patients over 65 years old may have a stronger reaction and need a smaller dose. What side effects may I notice from receiving this medicine? Side effects that you should report to your doctor or health progressive care unit registered nurse as soon as possible: allergic reactions like skin rash, itching or hives, swelling of the face, lips, or tongue breathing difficulties, wheezing confusion light headedness or fainting spells severe stomach pain yellowing of the skin or the whites of the eyes Side effects that usually do not require medical attention (report to your doctor or health progressive care unit registered nurse if they continue or are bothersome): dizziness drowsiness nausea vomiting What may interact with this medicine? alcohol antihistamines barbiturates like amobarbital, butalbital, butabarbital, methohexital, pentobarbital, phenobarbital, thiopental, and secobarbital benztropine drugs for bladder problems like solifenacin, trospium, oxybutynin, tolterodine, hyoscyamine, and methscopolamine drugs for breathing problems like ipratropium and tiotropium drugs for certain stomach or intestine problems like propantheline, homatropine methylbromide, glycopyrrolate, atropine, belladonna, and dicyclomine general anesthetics like etomidate, ketamine, nitrous oxide, propofol, desflurane, enflurane, halothane, isoflurane, and sevoflurane medicines for depression, anxiety, or psychotic disturbances medicines for sleep muscle relaxants naltrexone narcotic medicines (opiates) for pain phenothiazines like perphenazine, thioridazine, chlorpromazine, mesoridazine, fluphenazine, prochlorperazine, promazine, and trifluoperazine scopolamine tramadol trihexyphenidyl What if I miss a dose? If you miss a dose, take it as soon as you can. If it is almost time for your next dose, take only that dose. Do not take double or extra doses. Where should I keep my medicine? Keep out of the reach of children. This medicine can be abused. Keep your medicine in a safe place to protect it from theft. Do not share this medicine with anyone. Selling or giving away this medicine is dangerous and against the law. Store at room temperature between 20 and 25 degrees C (68 and 77 degrees F). Keep container tightly closed. Protect from light. This medicine may cause accidental overdose and if it is taken by other adults, children, or pets. Flush any unused medicine down the toilet to reduce the chance of harm. Do not use the medicine after the expiration date. What should I tell my health care provider before I take this medicine? They need to know if you have any of these conditions: brain tumor Crohn's disease, inflammatory bowel disease, or ulcerative colitis drink more than 3 alcohol containing drinks per day drug abuse or addiction head injury heart or circulation problems kidney disease or problems going to the bathroom liver disease lung disease, asthma, or breathing problems an unusual or allergic reaction to acetaminophen, oxycodone, other opioid analgesics, other medicines, foods, dyes, or preservatives or trying to get breast-feeding What should I watch for while using this medicine? Tell your doctor or health progressive care unit registered nurse if your pain does not go away, if it gets worse, or if you have new or a different type of pain. You may develop tolerance to the medicine. Tolerance means that you will need a higher dose of the medication for pain relief. Tolerance is normal and is expected if you take this medicine for a long time. Do not suddenly stop taking your medicine because you may develop a severe reaction. Your body becomes used to the medicine. This does NOT mean you are addicted. Addiction is a behavior related to getting and using a drug for a non-medical reason. If you have pain, you have a medical reason to take pain medicine. Your doctor will tell you how much medicine to take. If your doctor wants you to stop the medicine, the dose will be slowly lowered over time to avoid any side effects. You may get drowsy or dizzy. Do not drive, use machinery, or do anything that needs mental alertness until you know how this medicine affects you. Do not stand or sit up quickly, especially if you are an older patient. This reduces the risk of dizzy or fainting spells. Alcohol may interfere with the effect of this medicine. Avoid alcoholic drinks. There are different types of narcotic medicines (opiates) for pain. If you take more than one type at the same time, you may have more side effects. Give your health care provider a list of all medicines you use. Your doctor will tell you how much medicine to take. Do not take more medicine than directed. Call emergency for help if you have problems breathing. The medicine will cause constipation. Try to have a bowel movement at least every 2 to 3 days. If you do not have a bowel movement for 3 days, call your doctor or health progressive care unit registered nurse. Do not take Tylenol (acetaminophen) or medicines that have acetaminophen with this medicine. Too much acetaminophen can be very dangerous. Many nonprescription medicines contain acetaminophen. Always read the labels carefully to avoid taking more acetaminophen. You have been given the following additional information: Dental Pain Clindamycin Hydrochloride Oral capsule Oxycodone Hydrochloride, Acetaminophen Oral tablet (Electronically signed by Oumou Lopez P.A.-C 08/20/2016 13:30)
--- NOTE | 2016-08-20 19:45 | ED MAR SUMMARY ---
..... Medication Administration Record [facility] [address] [place] [address] Patient: MARTY YOUNG Visit ID: [id number] 31y, F Weight: 124.2 kg Height/Length: 64 in BMI: 47 ALLERGIES: No Known Drug Allergy Given 13:15 08/20/2016 Marcello Buenrostro R.N. Medication Administered: PERCOCET [PO] (OXYCODONE-ACETAMINOPHEN), Dose: 1 tab 5/325 mg Tablets PO. Medication Ordered: Percocet PO 5/325 mg (HIGH ALERT MEDICATION, NOW). Given 13:17 08/20/2016 Marcello Buenrostro R.N. Medication Administered: CLINDAMYCIN [IM], Dose: 600 mg IM. Medication Ordered: Clindamycin IM 600 mg (NOW).
--- NOTE | 2016-08-20 19:45 | ED MED RECONCILIATION SUMMARY ---
Patient: MARTY YOUNG Medication Reconciliation Report [facility] VisitID: [id number] [place] [address] 31y, F Registration Date/Time: 08/20/2016 Weight: 124.2 kg Height/Length: 64 in. BMI: 47.0 ALLERGIES: No Known Drug Allergy The patient's Home Medications are listed below: THE FOLLOWING MEDICATIONS NEED TO BE RECONCILED: Amoxicillin Oral (500 mg), x3 daily HydrOXYzine HCl Oral 25 mg, 4x a day Lasix Oral 20 mg Metoprolol Tartrate Oral 25 mg, daily ProAir HFA Inhalation 2 puffs, 4x a day PROzac Oral 60 mg, daily Tylenol with Codeine #3 Oral Vicodin Oral 5 mg The source(s) of the original Home Medication information: Not obtained. The following Medications were given to the patient in the Emergency Department: Clindamycin [IM] IM 600 mg, administered: 08/20/2016 1:17:00 PM Percocet [PO] PO 1 tab, administered: 08/20/2016 1:15:00 PM The following Medications were prescribed to the patient: Cleocin 300 mg: take 1 capsule orally every 8 hours for 10 days. No refill. Substitution is permissible. -- Oumou Lopez P.A.-C Percocet 5 mg/325 mg: take 1 tablet orally every 6 hours as needed for pain. No refill. Substitution is permissible.(#7) -- Oumou Lopez P.A.-C
--- NOTE | 2016-08-20 19:45 | ED MAR SUMMARY ---
..... Medication Administration Record [facility] [address] [place] [address] Patient: MARTY YOUNG Visit ID: [id number] 31y, F Weight: 124.2 kg Height/Length: 64 in BMI: 47 ALLERGIES: No Known Drug Allergy Given 13:15 08/20/2016 Marcello Buenrostro R.N. Medication Administered: PERCOCET [PO] (OXYCODONE-ACETAMINOPHEN), Dose: 1 tab 5/325 mg Tablets PO. Medication Ordered: Percocet PO 5/325 mg (HIGH ALERT MEDICATION, NOW). Given 13:17 08/20/2016 Marcello Buenrostro R.N. Medication Administered: CLINDAMYCIN [IM], Dose: 600 mg IM. Medication Ordered: Clindamycin IM 600 mg (NOW).
--- NOTE | 2016-08-20 19:45 | ED MED RECONCILIATION SUMMARY ---
Patient: MARTY YOUNG Medication Reconciliation Report [facility] VisitID: [id number] [place] [address] 31y, F Registration Date/Time: 08/20/2016 Weight: 124.2 kg Height/Length: 64 in. BMI: 47.0 ALLERGIES: No Known Drug Allergy The patient's Home Medications are listed below: THE FOLLOWING MEDICATIONS NEED TO BE RECONCILED: Amoxicillin Oral (500 mg), x3 daily HydrOXYzine HCl Oral 25 mg, 4x a day Lasix Oral 20 mg Metoprolol Tartrate Oral 25 mg, daily ProAir HFA Inhalation 2 puffs, 4x a day PROzac Oral 60 mg, daily Tylenol with Codeine #3 Oral Vicodin Oral 5 mg The source(s) of the original Home Medication information: Not obtained. The following Medications were given to the patient in the Emergency Department: Clindamycin [IM] IM 600 mg, administered: 08/20/2016 1:17:00 PM Percocet [PO] PO 1 tab, administered: 08/20/2016 1:15:00 PM The following Medications were prescribed to the patient: Cleocin 300 mg: take 1 capsule orally every 8 hours for 10 days. No refill. Substitution is permissible. -- Oumou Lopez P.A.-C Percocet 5 mg/325 mg: take 1 tablet orally every 6 hours as needed for pain. No refill. Substitution is permissible.(#7) -- Oumou Lopez P.A.-C
--- NOTE | 2016-08-20 19:45 | ED DISCHARGE INSTRUCTIONS ---
Patient: MARYT YOUNG General Instructions [facility] VisitID: [id number] [place] [address] 31y, F Registration Date/Time: 08/20/2016 Moderate dental pain. INSTRUCTIONS Drink plenty of fluids. Prescription Medications: Cleocin 300 mg: take 1 capsule orally every 8 hours for 10 days. No refill. Substitution is permissible. Percocet 5 mg/325 mg: take 1 tablet orally every 6 hours as needed for pain. No refill. Substitution is permissible. (#7) Follow-up: Follow up with your doctor. Understanding of the discharge instructions verbalized by patient. ADDITIONAL INFORMATION Dental Pain A crack or cavity in the tooth, which exposes the sensitive inner area of the tooth can cause tooth pain. An infection in the gum or the root of the tooth can cause pain and swelling. The pain is often made worse by drinking hot or cold fluids, or biting on hard foods. Pain may spread from the tooth to the ear or jaw on the same side. Home Care: Avoid hot and cold foods and liquids since your tooth may be sensitive to temperature changes. If your tooth is chipped or cracked, or if there is a large open cavity, apply OIL OF CLOVES (available [id number]-zptbrrw in drug stores) directly to the tooth to reduce pain. Some pharmacies carry an sxyd-oeo-eafmsdy "toothache kit." This contains a paste, which can be applied over the exposed tooth to decrease sensitivity. A cold pack on your jaw over the sore area may help reduce pain. You may use acetaminophen (Tylenol) or ibuprofen (Motrin, Advil) to control pain, unless another medicine was prescribed. [ NOTE: If you have chronic liver or kidney disease or ever had a stomach ulcer or GI bleeding, talk with your doctor before using these medicines.] If you have signs of an infection, an antibiotic will be given. Take it as directed. Follow-Up as directed with a dentist. Your pain may go away with the treatment given. However, only a dentist can fully evaluate and treat the cause and prevent the pain from coming back again. TOOTHACHE IS A SIGN OF DISEASE IN YOUR TOOTH AND SHOULD BE EXAMINED AND TREATED BY A DENTIST. Get Prompt Medical Attention if any of the following occur: Your face becomes swollen or red Pain worsens or spreads to the neck Fever over 100.4 F (38.0 C) Unusual drowsiness; headache or stiff neck; weakness or fainting Pus drains from the tooth Difficulty swallowing or breathing Clindamycin Hydrochloride Oral capsule What is this medicine? CLINDAMYCIN (MARLEN Brown) is a lincosamide antibiotic. It is used to treat certain kinds of bacterial infections. It will not work for colds, flu, or other viral infections. How should I use this medicine? Take this medicine by mouth with a full glass of water. Follow the directions on the prescription label. You can take this medicine with food or on an empty stomach. If the medicine upsets your stomach, take it with food. Take your medicine at regular intervals. Do not take your medicine more often than directed. Take all of your medicine as directed even if you think your are better. Do not skip doses or stop your medicine early. Talk to your dock manager regarding the use of this medicine in children. Special care may be needed. What side effects may I notice from receiving this medicine? Side effects that you should report to your doctor or health child care sitter as soon as possible: allergic reactions like skin rash, itching or hives, swelling of the face, lips, or tongue dark urine pain on swallowing redness, blistering, peeling or loosening of the skin, including inside the mouth unusual bleeding or bruising unusually weak or tired yellowing of eyes or skin Side effects that usually do not require medical attention (report to your doctor or health child care sitter if they continue or are bothersome): diarrhea itching in the rectal or genital area joint pain nausea, vomiting stomach pain What may interact with this medicine? chloramphenicol erythromycin kaolin products What if I miss a dose? If you miss a dose, take it as soon as you can. If it is almost time for your next dose, take only that dose. Do not take double or extra doses. Where should I keep my medicine? Keep out of the reach of children. Store at room temperature between 20 and 25 degrees C (68 and 77 degrees F). Throw away any unused medicine after the expiration date. What should I tell my health care provider before I take this medicine? They need to know if you have any of these conditions: kidney disease liver disease stomach problems like colitis an unusual or allergic reaction to clindamycin, lincomycin, or other medicines, foods, dyes like tartrazine or preservatives or trying to get breast-feeding What should I watch for while using this medicine? Tell your doctor or healthcare professional if your symptoms do not start to get better or if they get worse. Do not treat diarrhea with over the counter products. Contact your doctor if you have diarrhea that lasts more than 2 days or if it is severe and watery. Oxycodone Hydrochloride, Acetaminophen Oral tablet What is this medicine? ACETAMINOPHEN; OXYCODONE (a set a EVERARDO laurie fen; ox i KOE done) is a pain reliever. It is used to treat mild to moderate pain. How should I use this medicine? Take this medicine by mouth with a full glass of water. Follow the directions on the prescription label. Take your medicine at regular intervals. Do not take your medicine more often than directed. Talk to your dock manager regarding the use of this medicine in children. Special care may be needed. Patients over 65 years old may have a stronger reaction and need a smaller dose. What side effects may I notice from receiving this medicine? Side effects that you should report to your doctor or health child care sitter as soon as possible: allergic reactions like skin rash, itching or hives, swelling of the face, lips, or tongue breathing difficulties, wheezing confusion light headedness or fainting spells severe stomach pain yellowing of the skin or the whites of the eyes Side effects that usually do not require medical attention (report to your doctor or health child care sitter if they continue or are bothersome): dizziness drowsiness nausea vomiting What may interact with this medicine? alcohol antihistamines barbiturates like amobarbital, butalbital, butabarbital, methohexital, pentobarbital, phenobarbital, thiopental, and secobarbital benztropine drugs for bladder problems like solifenacin, trospium, oxybutynin, tolterodine, hyoscyamine, and methscopolamine drugs for breathing problems like ipratropium and tiotropium drugs for certain stomach or intestine problems like propantheline, homatropine methylbromide, glycopyrrolate, atropine, belladonna, and dicyclomine general anesthetics like etomidate, ketamine, nitrous oxide, propofol, desflurane, enflurane, halothane, isoflurane, and sevoflurane medicines for depression, anxiety, or psychotic disturbances medicines for sleep muscle relaxants naltrexone narcotic medicines (opiates) for pain phenothiazines like perphenazine, thioridazine, chlorpromazine, mesoridazine, fluphenazine, prochlorperazine, promazine, and trifluoperazine scopolamine tramadol trihexyphenidyl What if I miss a dose? If you miss a dose, take it as soon as you can. If it is almost time for your next dose, take only that dose. Do not take double or extra doses. Where should I keep my medicine? Keep out of the reach of children. This medicine can be abused. Keep your medicine in a safe place to protect it from theft. Do not share this medicine with anyone. Selling or giving away this medicine is dangerous and against the law. Store at room temperature between 20 and 25 degrees C (68 and 77 degrees F). Keep container tightly closed. Protect from light. This medicine may cause accidental overdose and if it is taken by other adults, children, or pets. Flush any unused medicine down the toilet to reduce the chance of harm. Do not use the medicine after the expiration date. What should I tell my health care provider before I take this medicine? They need to know if you have any of these conditions: brain tumor Crohn's disease, inflammatory bowel disease, or ulcerative colitis drink more than 3 alcohol containing drinks per day drug abuse or addiction head injury heart or circulation problems kidney disease or problems going to the bathroom liver disease lung disease, asthma, or breathing problems an unusual or allergic reaction to acetaminophen, oxycodone, other opioid analgesics, other medicines, foods, dyes, or preservatives or trying to get breast-feeding What should I watch for while using this medicine? Tell your doctor or health child care sitter if your pain does not go away, if it gets worse, or if you have new or a different type of pain. You may develop tolerance to the medicine. Tolerance means that you will need a higher dose of the medication for pain relief. Tolerance is normal and is expected if you take this medicine for a long time. Do not suddenly stop taking your medicine because you may develop a severe reaction. Your body becomes used to the medicine. This does NOT mean you are addicted. Addiction is a behavior related to getting and using a drug for a non-medical reason. If you have pain, you have a medical reason to take pain medicine. Your doctor will tell you how much medicine to take. If your doctor wants you to stop the medicine, the dose will be slowly lowered over time to avoid any side effects. You may get drowsy or dizzy. Do not drive, use machinery, or do anything that needs mental alertness until you know how this medicine affects you. Do not stand or sit up quickly, especially if you are an older patient. This reduces the risk of dizzy or fainting spells. Alcohol may interfere with the effect of this medicine. Avoid alcoholic drinks. There are different types of narcotic medicines (opiates) for pain. If you take more than one type at the same time, you may have more side effects. Give your health care provider a list of all medicines you use. Your doctor will tell you how much medicine to take. Do not take more medicine than directed. Call emergency for help if you have problems breathing. The medicine will cause constipation. Try to have a bowel movement at least every 2 to 3 days. If you do not have a bowel movement for 3 days, call your doctor or health child care sitter. Do not take Tylenol (acetaminophen) or medicines that have acetaminophen with this medicine. Too much acetaminophen can be very dangerous. Many nonprescription medicines contain acetaminophen. Always read the labels carefully to avoid taking more acetaminophen. You have been given the following additional information: Dental Pain Clindamycin Hydrochloride Oral capsule Oxycodone Hydrochloride, Acetaminophen Oral tablet (Electronically signed by Oumou Lopez P.A.-C 08/20/2016 13:30)
== END 2016-08-20 13:26 | disposition home or self-care (01) ==
LOC: ED SRH 12:44
DX: K08.89 Other specified disorders of teeth and supporting structures (principal); Z98.818 Other dental procedure status; I10 Essential (primary) hypertension; Z79.899 Other long term (current) drug therapy; Z79.2 Long term (current) use of antibiotics